=== PATIENT | male | born 1990 | race Two or more races ===

== ENCOUNTER 2024-03-12 22:36 | Emergency (ER) | payer MEDICAID, OTHER ==
[~2024-03-12] VITALS: Ht 180.3 cm; Wt 82.0 kg
[2024-03-12 22:55] VITALS: BP 124/71; PULSE 100; RESP 20; O2SAT 94
== END 2024-03-13 | disposition left against medical advice (07) ==
LOC: EDBD 22:36 → ER 22:36
DX: F19.10 Other psychoactive substance abuse, uncomplicated (principal); R07.81 Pleurodynia; F17.210 Nicotine dependence, cigarettes, uncomplicated